=== PATIENT | female | born 1935 | race Two or more races ===

== ENCOUNTER 2017-10-14 07:13 | Outpatient (CLI) | payer OTHER ==
[~2017-10-14 07:13] MED LIST: FOSAMAX70 MG PO; MOBIC15 MG PO; ORPH100T PO
== END 2017-10-14 07:38 | disposition home or self-care (01) ==
LOC: MAMO-SONO 07:13
DX: Z12.31 Encounter for screening mammogram for malignant neoplasm of breast (principal); Z87.898 Personal history of other specified conditions; R92.1 Mammographic calcification found on diagnostic imaging of breast

== ENCOUNTER 2021-03-24 10:00 | Outpatient (CLI) | payer OTHER | END 2021-03-24 10:07 | disposition home or self-care (01) | LOC: RAD 10:00 | PROVIDERS: ATTEND Physical Medicine & Rehabilitation | DX: M25.511 Pain in right shoulder (principal) ==

== ENCOUNTER 2021-05-19 07:41 | Outpatient (CLI) | payer OTHER | END 2021-05-19 07:49 | disposition home or self-care (01) | LOC: RAD 07:41 | PROVIDERS: ATTEND Orthopaedic Surgery | DX: M25.561 Pain in right knee (principal); M25.562 Pain in left knee ==

== ENCOUNTER 2021-05-28 11:27 | Inpatient (IN) | payer OTHER ==
[~2021-05-28] VITALS: Ht 152.4 cm; Wt 43.1 kg
[~2021-05-28 11:27] MED LIST changes: +8HR ARTHRITIS650 MG; +ADULT ONE DAIL0.4 MG; +ALPRAZOLAM0.5 MG; +CELECOXIB200 MG; +DICLOFENAC SOD100 GM; +IMODIUM A-D2 MG PO; +MAXIMUM D3325 MCG; +METHIMAZOLE5 MG; +PEPTO-BISM262 MG/15; +SYSTANE ULTRA 010 ML; +TUSSIN DM LIQU118 ML
[2021-05-28] MEDS ORDERED: FOSAMAX70 MG (11:50)
[2021-05-28] MEDS ORDERED: XANAX XR0.5 MG (11:50)
--- NOTE | 2021-05-28 11:51 | NUR ---
PTE LLEGA EN AMBULANCIA, ALERTA Y ORIENTADA EN DEEPAK PATEL ESFERAS, REFIERE TRAUMA EN AMBAS RODILLAS Y HOMBRO RT POR CAIDA HOY EN EL HOGAR AL TROPEZAR. SE UBICA EN AREA DE OBSERVACION.
--- NOTE | 2021-05-28 12:04 | NUR ---
PTE EVALUADA POR EL DR VINCENT. ORIENTADA SOBRE EL TX ORDENADO, LO CUAL REFIERE ENTENDER. SE ADMINISTRAN MEDICAMENTOS IVANA ORDEN MEDICA Y SIGUIENDO MEDIDAS ASEPTICAS. PENDIENTE A REALIZAR JANICE X.
[2021-05-29] MEDS ORDERED: 8HR ARTHRITIS650 MG (08:33)
[2021-05-29] MEDS ORDERED: SERTRALINE HCL25 MG (08:34)
[2021-05-29] MEDS ORDERED: LATANOPROST2.5 ML (08:34)
[2021-05-29] MEDS ORDERED: MAXIMUM D3325 MCG (08:34)
[2021-05-29] MEDS ORDERED: METHIMAZOLE5 MG (08:34)
[2021-06-01] MEDS ORDERED: ELIQUIS2.5 MG PO (07:55)
[2021-06-01] MEDS ORDERED: ULTRACET PO (07:55)
== END 2021-06-01 13:30 | DRG 522 ==
LOC: ER 11:27 → SURH 16:28 → SEC-K 16:28 → SURH 05-29 02:21
PROVIDERS: ADMIT Orthopaedic Surgery; ATTEND Orthopaedic Surgery
PROC: 0SRR01Z Replacement of Right Hip Joint, Femoral Surface with Metal Synthetic Substitute, Open Approach (ICD-10-PCS; principal; 2021-05-28)
PROC: 0MBL0ZZ Excision of Right Hip Bursa and Ligament, Open Approach (ICD-10-PCS; 2021-05-28)
PROC: 30233N1 Transfusion of Nonautologous Red Blood Cells into Peripheral Vein, Percutaneous Approach (ICD-10-PCS; 2021-05-29)
DX: S72.031A Displaced midcervical fracture of right femur, initial encounter for closed fracture (principal); D62 Acute posthemorrhagic anemia; M16.11 Unilateral primary osteoarthritis, right hip; Z20.822 Contact with and (suspected) exposure to COVID-19

== ENCOUNTER 2021-06-03 18:34 | Inpatient (IN) | payer OTHER ==
[~2021-06-03] VITALS: Ht 152.4 cm
[~2021-06-03 18:34] MED LIST changes: +ELIQUIS2.5 MG PO; +FOSAMAX70 MG; +LATANOPROST2.5 ML; +SERTRALINE HCL25 MG; +ULTRACET PO; +XANAX XR0.5 MG
== END 2021-06-16 21:00 | disposition home or self-care (01) | DRG 812 ==
LOC: ER 18:34 → MEDJ 06-04 15:05 → SEC-K 06-04 15:05 → MEDJ 06-04 15:55 → ICU 06-07 14:56 → MEDI 06-13 00:24
PROVIDERS: ADMIT Specialist; ATTEND Specialist
PROC: 30233N1 Transfusion of Nonautologous Red Blood Cells into Peripheral Vein, Percutaneous Approach (ICD-10-PCS; 2021-06-04)
PROC: 0DJ08ZZ Inspection of Upper Intestinal Tract, Via Natural or Artificial Opening Endoscopic (ICD-10-PCS; principal; 2021-06-08)
PROC: 02HV33Z Insertion of Infusion Device into Superior Vena Cava, Percutaneous Approach (ICD-10-PCS; 2021-06-10)
DX: D64.9 Anemia, unspecified (principal); N39.0 Urinary tract infection, site not specified; K92.1 Melena; K44.9 Diaphragmatic hernia without obstruction or gangrene; K29.80 Duodenitis without bleeding; B96.89 Other specified bacterial agents as the cause of diseases classified elsewhere; Z20.822 Contact with and (suspected) exposure to COVID-19; E86.0 Dehydration; E87.8 Other disorders of electrolyte and fluid balance, not elsewhere classified; E05.90 Thyrotoxicosis, unspecified without thyrotoxic crisis or storm; M81.8 Other osteoporosis without current pathological fracture; F32.9 Major depressive disorder, single episode, unspecified

== ENCOUNTER 2022-04-29 08:43 | Outpatient (CLI) | payer OTHER | END 2022-04-29 08:46 | disposition home or self-care (01) | LOC: NUCLEAR 08:43 | PROVIDERS: ATTEND Internal Medicine Rheumatology | DX: M81.0 Age-related osteoporosis without current pathological fracture (principal) ==

== ENCOUNTER 2022-04-29 11:42 | Outpatient (CLI) | payer OTHER | END 2022-04-29 11:48 | disposition home or self-care (01) | LOC: RAD 11:42 | PROVIDERS: ATTEND Orthopaedic Surgery | DX: M25.561 Pain in right knee (principal); M25.562 Pain in left knee ==

== ENCOUNTER 2022-05-30 11:17 | Inpatient (IN) | payer OTHER ==
[~2022-05-30] VITALS: Ht 157.5 cm; Wt 45.4 kg
[2022-05-30] MEDS ORDERED: LEVOTHYROXINE25 MCG PO (11:30)
[2022-05-30] MEDS ORDERED: SYNTHROID50 MCG PO (11:30)
--- NOTE | 2022-05-30 11:32 | NUR ---
PACIENTE ES TRAIDA POR AMBINACIA POR HEMATURIA DESDE HACE 2 REYNA.
--- NOTE | 2022-05-30 12:22 | NUR ---
SE REALIZAN MUESTRAS DE [place] POR ORDEN MEDICA, SE ORIENTA A PACIENTE SOBRE LAS ORDENES MEDICAS. PACIENTE SE CATATHERIZA.
--- NOTE | 2022-05-30 14:25 | NUR ---
SE REALIZA LLAMADA A BANCO DE [place] Y SE LOGRA CONTACTO CON SR. BARRON CUAL NOTIFICA PACIENTE YA CUENTA CON EXPEDIENTE PREVIO. SE ORIENTA EL MISMO SOBRE ORDEN MEDICA DE REQUIZAR AYAKA UNIDAD DE [place] COMPLETA PARA TRANFUNDIR. PACIENTE CON 2 VENOPUNCIONES Y ORDEN DE PEDIR [place] EJECUTADA. CONSENTIMIWENTO FIRMADO POR MEDICO Y FAMILIAR DE PACIENTE.
--- NOTE | 2022-05-30 22:52 | NUR ---
PERSONAL DE LABORATORIO NOTIFICA QUE LOS TUBOS PILOTOS PARA TRANSFUNDIR FUERON RECHAZADOS POR BANCO DE [place]. SE NOTIFICA A LIDER DE TURNO.
--- NOTE | 2022-05-31 07:00 | NUR ---
SE RECIBE PTE FEMENINA DE 87 ANOS ALERTA. PTE AL MOMENTO SE OBSERBA EN CAMA EN DESCANSO ABSOLUTO ACOMPANADO POR FAMILIAR. PTE AL MOMENTO RECIBIENDO TRANSFUCION DE 1U PRBC. PTE SE MANTIENE BAJO OBSERBACION POR CAMBIO EN ANNE CONDICION.
--- NOTE | 2022-05-31 10:00 | NUR ---
SE LLAMA A TRABAJO SOCIAL PARA NOTIFICAR NYA DE PTE Y FAMILIAR. TRABAJO SOCIAL EVALUA A PTE Y NYA ES TRABAJADO POR DEP. SERVICIOS SOCALES DE . MS MAYRA ES QUIEN EVALUA Y NOTIFICA NYA.
== END 2022-06-03 22:22 | disposition home or self-care (01) | DRG 690 ==
LOC: ER 11:17 → MEDJ 05-31 13:47 → SEC-K 05-31 13:47 → MEDJ 05-31 15:07
PROVIDERS: ADMIT Internal Medicine; ATTEND Internal Medicine
PROC: 30233N1 Transfusion of Nonautologous Red Blood Cells into Peripheral Vein, Percutaneous Approach (ICD-10-PCS; principal; 2022-05-31)
PROC: 02H633Z Insertion of Infusion Device into Right Atrium, Percutaneous Approach (ICD-10-PCS; 2022-06-01)
DX: N39.0 Urinary tract infection, site not specified (principal); F13.20 Sedative, hypnotic or anxiolytic dependence, uncomplicated; N93.8 Other specified abnormal uterine and vaginal bleeding; Z20.822 Contact with and (suspected) exposure to COVID-19; R31.29 Other microscopic hematuria

== ENCOUNTER 2022-11-17 12:56 | Inpatient (IN) | payer OTHER ==
[~2022-11-17] VITALS: Ht 154.9 cm; Wt 45.8 kg
[~2022-11-17 12:56] MED LIST changes: +LEVOTHYROXINE25 MCG PO; +SYNTHROID50 MCG PO
--- NOTE | 2022-11-17 13:08 | NUR ---
PTE ALERTA Y ORIENTADA X3, EN AMBULANCIA ACOMPANADA POR ANNE HIJO. PARAMEDICA REFIERE PTE SUFRIO AYAKA CAIDA HACE VERNON 3 MESES. PTE REFIERE DOLOR EN TODO EL CUERPO. SE ZULEIMA SV Y SE UBICA PTE EN AREA DE OBSERVACION.
--- NOTE | 2022-11-17 14:55 | NUR ---
PTE ALERTA Y ORIENTADA X3, EVALUADA POR SE COLECTAN MUESTRAS DE [place] POR ORDEN MEDICA BAJO MEDIDAS ASEPTICAS.
--- NOTE | 2022-11-17 17:19 | NUR ---
SE LLAMA A PERSONAL DE SERVICI[facility] [employer] PARA REQUIZAR 4 UNIDADES DE PRBC FRACCIONADAS PARA TRANSFUNDIR. SE LLEVAN TUBOS PILOTOS A LABORATORIO.
== END 2022-11-19 21:34 | disposition home or self-care (01) | DRG 812 ==
LOC: ER 12:56 → SEC-K 19:04 → MEDI 19:04
PROVIDERS: ADMIT Specialist; ATTEND Specialist
PROC: 30233N1 Transfusion of Nonautologous Red Blood Cells into Peripheral Vein, Percutaneous Approach (ICD-10-PCS; principal; 2022-11-18)
DX: D64.89 Other specified anemias (principal); D50.0 Iron deficiency anemia secondary to blood loss (chronic); D53.0 Protein deficiency anemia; F41.0 Panic disorder [episodic paroxysmal anxiety]; F32.9 Major depressive disorder, single episode, unspecified; M84.412S Pathological fracture, left shoulder, sequela; M84.411S Pathological fracture, right shoulder, sequela; M84.459S Pathological fracture, hip, unspecified, sequela; E03.9 Hypothyroidism, unspecified; Z74.01 Bed confinement status